=== PATIENT | female | born 1930 | race Caucasian/White ===

== ENCOUNTER 2016-12-06 19:38 | Observation (INO) ==
[2016-12-06] MEDS ORDERED: ZOFRAN IV ONE (19:57)
[2016-12-06 20:21] LABS: MANUAL DIFF NEEDED? NO
[2016-12-06 20:29] LABS: BASO% 0.2 % (0.0-0.8); EOS# 0.13 X1000 (0.0-0.7); EOS% 1.4 % (0.0-10.0); HEMATOCRIT 45.5 % (37.0-47.0); HEMOGLOBIN 14.9 g/dL (12.0-16.0); LYMPH# 1.47 X1000 (1.2-3.4); LYMPH% 15.7 % (20.5-51.1); MCH 30.5 PG (27-31); MCHC 32.7 g/dL (33-37); MONO# 0.75 X1000 (0.11-0.59); MPV 10.8 FL (7.4-10.4); NEUT% 74.7 % (42.2-75.2); PLT 219 X1000 (130-400); RBC 4.89 XMIL (4.2-5.4)
--- NOTE | 2016-12-06 20:32 | Diag Imaging Result Doc PS360 ---
EXAM: CHEST-1 VIEW HISTORY: dizzy, hypothermia TECHNIQUE: AP upright portable at 2019 COMMENT: The inspiration is suboptimal. The cardiomediastinal silhouette is increased since 10/13/2014. The pulmonary vascularity is increased in prominence. IMPRESSION: Cardiomegaly and pulmonary vascular engorgement. Electronically signed by Sridhar Garrett 12/06/2016 8:30 PM
[2016-12-06 20:39] LABS: PROTIME 10.5 Seconds (9.2-11.7); PTT 25.3 Seconds (22.0-36.0)
[2016-12-06 20:59] LABS: ALBUMIN 4.6 g/dL (3.5-5.0); CALCIUM 9.9 mg/dL (8.8-10.2); MAGNESIUM 2.1 mg/dL (1.5-2.7); POTASSIUM 3.9 mmol/L (3.5-5.1); TOTAL BILIRUBIN 0.54 mg/dL (0.20-1.00); TOTAL PROTEIN 7.4 g/dL (6.3-8.3)
--- NOTE | 2016-12-06 21:03 | Diag Imaging Result Doc PS360 ---
EXAM: HEAD W/O CONTRAST HISTORY: dizzy, vomit TECHNIQUE: CT of the head without contrast COMMENT: There is mild generalized cerebral atrophy. There is minimal periventricular white matter lucency particularly in the frontal lobes bilaterally. There is no evidence of bleed or abnormal extra-axial fluid collection. There is no mass effect. IMPRESSION: No evidence of acute intracranial disease. Minimal chronic microvascular changes. Electronically signed by Sridhar Garrett 12/06/2016 9:01 PM
[2016-12-06 21:05] LABS: ALLEN TEST YES; BE 2.1 mmoll (-3.0-3.0); BLOOD TYPE ARTERIAL; DRAW SITE R RADIAL; METHB 0.2 % (0.0-1.5); O2(CT) 20.2 mL/dL (15.0-23.0); PCO2(98.6) 46 mmHg (35-45); PO2(98.6) 72 mmHg (60-100); SAMPLE BLOOD; SAO2 93.4 % (95.0-100.0); THB 15.4 g/dL (11.5-17.4); pH(98.6) 7.39 (7.35-7.45)
[2016-12-06 21:06] LABS: MODALITY CANNULA
[2016-12-06] MEDS ORDERED: ATROPINE IV ONE (21:51)
[2016-12-06 22:00] LABS: URINE CULTURE NEEDED? NO; URINE MICRO REVIEW NEEDED? NO; URINE SOURCE CATH
[2016-12-06] MEDS ORDERED: ATROPINE SYRINGE IV ONE (22:00)
[2016-12-06 22:03] LABS: BILIRUBIN URINE NEGATIVE (NEGATIVE); BLOOD URINE NEGATIVE (NEGATIVE); COLOR STRAW; GLUCOSE URINE TRACE mg/dL (NEGATIVE); LEUKOCYTES URINE NEGATIVE (NEGATIVE); NITRITE URINE NEGATIVE (NEGATIVE); PROTEIN URINE NEGATIVE (NEGATIVE); SP GRAVITY URINE 1.006; TURBIDITY URINE CLEAR (CLEAR); UROBILINOGEN URINE NORMAL (NORMAL)
[2016-12-06 22:04] LABS: UR EPITHELIAL CELLS <10 /HPF (<10); URINE BACTERIA NEGATIVE /HPF; URINE RBC <10 /HPF (<10); URINE WBC <10 /HPF (<10)
[2016-12-07] MEDS: HALDOL IM PRN ×2 (03:16→05:30)
[2016-12-07] MEDS ORDERED: ANTIVERT PO PRN (03:17)
[2016-12-07] MEDS ORDERED: MILK OF MAGNESIA PO PRN (03:17)
[2016-12-07] MEDS ORDERED: ZOFRAN IV PRN (03:17)
[2016-12-07] MEDS ORDERED: TYLENOL PO PRN (03:17)
--- NOTE | 2016-12-07 05:39 | EKG Report ---
Test Performed on : 12/06/2016 10:32:48 PM Test Reason : dizzy Blood Pressure : / mmHG Vent. Rate : 115 BPM Atrial Rate : 060 BPM P-R Int : 000 ms QRS Dur : 090 ms QT Int : 370 ms P-R-T Axes : 000 -27 216 degrees QTc Int : 511 ms Atrial fibrillation. with rapid ventricular response. Minimal voltage criteria for LVH, may be normal variant Marked ST abnormality, possible inferior subendocardial injury Abnormal ECG No previous ECGs available Unconfirmed Result
--- NOTE | 2016-12-07 06:21 | HISTORY AND PHYSICAL ---
CHIEF COMPLAINT: Dizziness. HISTORY OF PRESENT ILLNESS: This is an 86-year-old female with severe dementia. She had no family at the bedside at the time of interview. The ER charting was unavailable for review at the time of admission. The patient apparently came in with a complaint of dizziness. It appears she was being treated for vertigo and received atropine 1 mg x2 doses. She then became tachycardic. An EKG was obtained which showed atrial fibrillation with a rapid ventricular rate around 115. She does not have a history of atrial fibrillation but, again, all information has been taken from the history and physical from 10/08/2014. The patient was oriented to person. She knew that she was in the hospital but otherwise, could not give any information. She did reportedly have some nausea and vomiting but I do not believe has had any vomiting since she has been in the hospital. A CT of her head was obtained in the emergency room, as well as a chest x-ray. Chest x-ray showed mild pulmonary vascular congestion and cardiomegaly. CT of her head showed no acute intracranial disease and minimal chronic microvascular changes. Laboratory data was grossly normal. She did have an elevated glucose at 246. Her urine was unremarkable. She will be admitted to the medical floor in observation status. 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 PREVIOUS SURGICAL HISTORY: Hysterectomy and tonsillectomy. FAMILY HISTORY: Unable to obtain related to patient's mentation. SOCIAL HISTORY: Denies tobacco, alcohol, or illicit drug use or abuse. ALLERGIES: No known drug allergies. HOME MEDICATIONS: 1. Lipitor 10 mg p.o. at bedtime. 2. Amlodipine 10 mg p.o. daily. 3. Atenolol 25 mg p.o. daily. 4. Colace 100 mg p.o. daily. 5. Tylenol 650 mg p.o. q.4 p.r.n. 6. Milk of magnesia 30 mL p.o. at bedtime p.r.n. 7. Calcium 600 plus vitamin D 1 p.o. daily. 8. Aricept 5 mg p.o. daily. 9. Remeron 15 mg p.o. at bedtime. REVIEW OF SYSTEMS: Fourteen point review of systems conducted with the patient. Pertinent positives are listed above in the HPI. Full review of systems could not be obtained related to patient's mentation. PHYSICAL EXAMINATION: VITAL SIGNS: Pulse is 62, respirations 21, blood pressure 158/85, oxygen saturation 95% on room air. GENERAL: Pleasantly confused, 86-year-old female, lying on the ER stretcher. No acute distress. Is oriented to person and knows she is at the hospital. Otherwise, is totally disoriented but very pleasant. HEENT: Head is atraumatic, normocephalic. Pupils equal, round, reactive to light. Extraocular eye movement intact. Sclerae are anicteric. Conjunctivae are pink. Oral mucosa is moist. NECK: Supple. No JVD. No thyromegaly. Trachea is midline. No cervical lymphadenopathy. CARDIAC: S1 and S2 are appreciated. No murmurs, gallops, rubs. Regular sinus rhythm on the monitor at this time. LUNGS: Clear to auscultation bilaterally. No rhonchi, wheezes, or rales. Symmetrical rise and fall with respirations. ABDOMEN: Soft, nondistended, nontender. Bowel sounds present in all 4 quadrants, normoactive. No pulsatile mass. No organomegaly. NEUROLOGICAL: Awake, alert, oriented to person and place, disoriented to situation and time. Unable to tell any of her medical history and does not have complaint. Cranial nerves 2-12 appear to be grossly intact. No motor or focal deficits noted. DIAGNOSTIC DATA: CT of the head shows mild microvascular changes. Chest x-ray shows cardiomegaly and increased pulmonary vascular congestion. LABORATORY DATA: CBC within normal limits. Coagulations within normal limits. ABG 7.39, pCO2 46, PO2 72, bicarb 26.4. This was on 2 L nasal cannula. Sodium 137, potassium 3.9, chloride 97, carbon dioxide 26, BUN 16, creatinine 1.1, glucose 246. Urine unremarkable. ASSESSMENT AND PLAN: 1. Vertigo. The patient received two doses of atropine in the emergency room which subsequently made her go into atrial fibrillation. She did not have complaint of dizziness, however. We will continue meclizine as needed at 12.5 mg by mouth. 2. Atrial fibrillation with rapid ventricular rate. On interview, the patient was back in sinus rhythm with a rate in the 60s to 90s. We will observe. We will not start any medications. Echocardiogram in the morning. We will consult cardiology to evaluate. We will check a TSH level and treat if needed. 3. Dementia. We will continue home medications. 4. Hyperlipidemia. Continue statin. 5. Hypertension. Continue medications. 6. Further recommendations per patient's clinical course. Dictated by TAMARA Candelario for Charly Cat MD cc: TAMARA Candelario MD
--- NOTE | 2016-12-07 07:05 | EKG Report ---
Test Performed on : 12/07/2016 05:59:30 AM Test Reason : afib Blood Pressure : / mmHG Vent. Rate : 061 BPM Atrial Rate : 061 BPM P-R Int : 172 ms QRS Dur : 074 ms QT Int : 432 ms P-R-T Axes : 054 -25 031 degrees QTc Int : 434 ms Normal sinus rhythm. Nonspecific ST abnormality Abnormal ECG When compared with ECG of 06-DEC-2016 22:32, (Unconfirmed) Sinus rhythm. has replaced Atrial fibrillation. Vent. rate has decreased BY 54 BPM QRS duration has decreased ST no longer depressed in Lateral leads T wave inversion no longer evident in Inferior leads T wave inversion no longer evident in Lateral leads Confirmed by Coy REHMAN, Jeremie Torres ([id number]) on 12/09/2016 9:11:11 AM
[2016-12-07] MEDS ORDERED: COLACE PO SCH (09:00)
[2016-12-07] MEDS ORDERED: TENORMIN PO SCH (09:00)
[2016-12-07] MEDS ORDERED: ARICEPT PO SCH (09:00)
[2016-12-07] MEDS ORDERED: CALTRATE 600 + D PO SCH (09:00)
[2016-12-07] MEDS ORDERED: NORVASC PO SCH (09:00)
--- NOTE | 2016-12-07 14:05 | CONSULTATION ---
DATE OF CONSULTATION: 12/07/2016 INDICATION: New onset atrial fibrillation. HISTORY OF PRESENT ILLNESS: Ms. Mcpherson is an 86-year-old female with a history of dementia, who apparently was brought in from the skilled nursing with complaints of dizziness. The patient has no complaints of this at this time and is not aware of any of these complaints proceeding her presentation. The note from the [facility] care facility in [place] said the patient was nauseated and dizzy and thus was sent to the ER. For some reason here, she was treated with atropine. There was no mention of bradycardia. She subsequently then converted into atrial fibrillation with a rate of around 115 and spontaneously converted back into sinus. There is no apparent history of atrial fibrillation previously. The patient is not able to provide any history regarding mobility or fall risk, and no ability to discuss any sort of bleeding issues. Since that time, the patient again has converted back over to sinus and has no complaints. PAST MEDICAL HISTORY: Significant for: 1. Hypertension. 2. Hyperlipidemia. 3. Urinary tract infections. FAMILY HISTORY: Unable to obtain, secondary to patient's history of dementia. SOCIAL HISTORY: Unable to be obtained. She currently is a resident of [facility] in [place]. REVIEW OF SYSTEMS: A 10 system review of systems is unable to be obtained secondary to patient's current dementia. PHYSICAL EXAMINATION: Vital Signs: During this hospitalization, she has been afebrile. Heart rates more recently have been in the 60s to 80s. Her blood pressure is 155/52. General: No acute distress. HEENT: Oropharynx is moist. Normal dentition. Eye examination shows pink conjunctivae. White sclerae. Neck Examination: Shows no obvious thyromegaly or thyroid tenderness. Cardiovascular: She is in a regular rate and rhythm. She has no obvious murmurs. Current telemetry shows that she is in sinus rhythm. She has no lower extremity edema. No carotid bruits. Chest examination: Clear bilaterally. She has no increased work of breathing. Abdomen: Soft, nontender, nondistended. She has no obvious organomegaly. Skin Examination: Warm and dry throughout, without any rashes. Neurological: She is moving all extremities well. Cranial nerves 2-12 are intact without any sensation deficits. PERTINENT DATA: Her EKG yesterday at 22:32 shows atrial fibrillation, rate of 115 beats per minute. She has some ST depression noted in the lateral leads. Her subsequent EKG occurring this morning at 5:59 shows sinus rhythm, rate of 61 beats per minute. She had a chest x-ray demonstrating cardiomegaly and mild pulmonary vascular congestion. Her head CT demonstrated no evidence of any acute intracranial disease. Lab findings show white count of 9.4, hematocrit 45, platelet count 219,000, INR 1. ABG shows pH 7.39, pCO2 46, pO2 of 72. Sodium 137, potassium 3.9, BUN 16, creatinine 1.1. Her TSH was 12.5. Cardiac enzymes are negative. Urinalysis was reviewed. ASSESSMENT: New onset atrial fibrillation, now back in sinus. PLAN: I do not believe the patient is an appropriate anticoagulation candidate presently secondary to her inability to provide any history regarding falls or bleeding risk. In addition, she has a history of significant dementia and I would not likely pursue treatment with anticoagulants. I will recommend aspirin therapy in this patient. For now, she can continue on her current medication regimen. I would add in a low dose of the diuretic, as that may benefit her vascular engorgement that was noted on her chest x-ray, although she is not currently symptomatic. From my standpoint, the patient may be discharged home with followup with a emt in the future. Her TSH elevation needs to be addressed, as she may be hypothyroid. cc: Matty Aaron MD
--- NOTE | 2016-12-07 14:38 | DISCHARGE SUMMARY ---
ADMISSION DATE: 12/07/2016 DISCHARGE DATE: 12/07/2016 CONSULTATIONS: None. PERTINENT PROCEDURES: Head CT: Showed: 1. No evidence of acute intracranial disease. 2. Chronic microvascular ischemic changes. Chest x-ray: Showed cardiomegaly and pulmonary vascular engorgement. DISCHARGE DIAGNOSES: 1. Vertigo, improved. 2. Atrial fibrillation with rapid ventricular response. The patient is back in sinus rhythm. 3. Dementia, continue home medications. 4. Hyperlipidemia, continue statin. 5. Hypertension, continue home medications. HOSPITAL COURSE: Briefly, Ms. Mcpherson is an 86-year-old female with severe dementia. She came to the emergency department with a complaint of dizziness. She was being treated for vertigo, received atropine 1 mg x2 doses. She then became tachycardic and an EKG was obtained that showed atrial fibrillation with a rapid ventricular response and a rate of around 15. The patient was only oriented to person, secondary to her dementia. She knew that she was in the hospital. Otherwise, she could not give any type of information. She did report some nausea, but no vomiting. A CT of the head in the emergency department did not show anything acute, as well as a chest x-ray that did show some mild pulmonary vascular congestion and cardiomegaly. Laboratory data was grossly normal. Her urine was unremarkable. The patient was admitted into observation status. Her vertigo has resolved. She is now back in sinus rhythm. Cards added ASA, and low dose HCTZ and ECHO that is pending final results and follow up with cards with in the month and will be discharged back to her rehab facility. DISCHARGE VITAL SIGNS: I d not have any temperatures reported, heart rate 63, respirations 15, blood pressure is 145/71, O2 is 93% on room air. DISCHARGE DIET: Healthy heart. DISCHARGE MEDICATIONS: As per Dr. Mcdowell. 1. Acetaminophen 650 mg p.o. every 4 hours p.r.n. 2. Norvasc 10 mg p.o. daily. 3. Aspirin 81 mg p.o. daily. 4. Tenormin 25 mg p.o. daily. 5. Lipitor 10 mg p.o. at bedtime. 6. Calcium 600 plus vitamin D 400, 1 each p.o. daily. 7. Colace 100 mg p.o. daily. 8. Aricept 5 mg p.o. daily. 9. Hydrochlorothiazide 12.5 mg p.o. daily. 10. Medical Mag 30 mL p.o. at bedtime p.r.n. 11. Antivert 12.5 mg p.o. t.i.d. 12. Remeron 15 mg p.o. at bedtime. DISPOSITION: The patient is being discharged back to rehabilitation. FOLLOWUP CARE: 1. She can follow up with Dr. Matty Aaron, ballpoint pen cartridge tester [facility], in 1 month. 2. The patient can return to the emergency department for any worsening of symptoms. This is TAMARA Boswell, doing a discharge summary for Dr. Mcdowell. Dictated by TAMARA Boswell for Todd Brando Mcdowell MD Addendum: I personally evaluated and examined the patient in conjunction to the OBGYN NURSE and agreed with her disposition. See my PN for exam MTDD
--- NOTE | 2016-12-07 14:41 | PROGRESS NOTE ---
DATE: 12/07/2016 SUBJECTIVE: The patient is pleasantly demented, and no pain, no dizziness, no lightheadedness. OBJECTIVE: Vital signs: Blood pressure 155/52, pulse of 80, respiration 15, temperature 94 degrees last documented. General appearance: Elderly white female in no acute distress. Pleasantly confused. HEENT: Anicteric. Clear conjunctivae. Neck: Supple. No JVD. No bruit. Cardiovascular: S1, S2. Normal rate and rhythm. No murmur, rubs, or gallops. Pulmonary: Clear to auscultation bilaterally. GI: Soft, nontender, nondistended. Normoactive bowel sounds. Musculoskeletal: No clubbing, cyanosis, or edema. ASSESSMENT/PLAN: This is an 86-year-old admitted to the hospital for dizziness and was given atropine in the emergency room, causing her to go into atrial fibrillation with rapid ventricular response. Discussed with Dr. Matty Aaron. Dr. Aaron will get an echocardiogram as an outpatient. The patient can be discharged from his standpoint. She is otherwise doing well. Her heart rate is in the 60s and 70s. We will plan to discharge the patient home. Should she have an elevated blood pressure, add hydrochlorothiazide 12.5, and also add an aspirin for her atrial fibrillation.
[2016-12-07 16:17] VITALS: BP 157/87
[2016-12-07] MEDS ORDERED: REMERON PO SCH (21:00)
[2016-12-07] MEDS ORDERED: LIPITOR PO SCH (21:00)
--- NOTE | 2016-12-08 04:59 | ECHO REPORT ---
ORDER DATE: 12/07/2016 INTERPRETING PHYSICIAN: Dr. Hanna REQUESTING PHYSICIAN: CLINICAL INDICATIONS: An 86-year-old female with new onset atrial fibrillation, dizziness, hypertension. M-MODE MEASUREMENTS: Right ventricle: 2.2 cm. Left ventricle end diastole: 3.6 cm. Left ventricle end systole: 2.3 cm. Posterior wall: 1.1 cm. Interventricular septum: 1.1 cm. Left atrium: 4.7 cm. Aortic root: 3.2 cm. SUMMARY OF 2-DIMENSIONAL IMAGING: The left ventricular function is normal. Ejection fraction 66%. Concentric LVH. The right ventricle is normal. The atria appear to be normal. The aortic valve looks normal. Color flow mapping indicates trace regurgitation. The mitral valve looks normal. Color flow mapping unremarkable. Pulse wave Doppler of mitral inflow shows reversal of the E and the A wave. Tissue Doppler of septal and lateral mitral annulus averages 5.5 cm per second. Pulmonary venous flow appears to be grossly normal. There is impaired left ventricular relaxation. The tricuspid valve shows a mild degree of regurgitation. The inferior vena cava was not visualized. Pulmonary pressure is somewhere in the range of 38-43 mmHg. The pulmonic valve looks normal. Color flow mapping unremarkable. There is no pericardial effusion, masses or thrombus. This study was technically difficult. Clinical correlation recommended. cc: MD Mat Calderon CRNP
[2016-12-08] MEDS ORDERED: HYDROCHLOROTHIAZIDE PO SCH (09:00)
[2016-12-08] MEDS ORDERED: ASPIRIN PO SCH (09:00)
--- NOTE | 2016-12-08 10:24 | Carotid Study ---
DATE: 12/07/2016 PROCEDURE: Carotid duplex imaging. REQUESTING PHYSICIAN: Dr. Arguello in the Emergency Department. INTERPRETING PHYSICIAN: Diego Sullivan MD TECH: [place] INDICATIONS: Vertigo. TECHNIQUE: Bilateral duplex and color flow imaging of the carotid arteries was performed using the [employer] Boxid E9 Ultrasound System with a 9L-D transducer. OBSERVED DATA RIGHT LEFT Brachial Blood Pressure Carotid Pulse Bruits: Carotid/Sub DIAGRAM OF ULTRASOUND IMAGING R L RIGHT INT EXT INT EXT LEFT Eran (cm/s) Eran (cm/s) Subclavian 75/0 Subclavian 108/0 CCA Proximal 56/6 CCA Proximal 101/10 CCA Distal 38/5 CCA Distal 59/8 Bulb 33/6 Bulb 84/5 ICA Proximal 47/7 ICA Proximal 69/11 ICA Mid 81/14 ICA Mid 92/11 ICA Distal 72/10 ICA Distal 48/10 ECA 305/0 ECA 98/5 Vertebral 45/8 Vertebral 60/15 ICA/CCA Ratio 1.45 ICA/CCA Ratio 0.91 % Stenosis 0%-39% % Stenosis 0%-39% FINDINGS: There appears to be irregular calcific plaques noted to bilateral carotid bulbs. There appears to be also stenosis noted in the right external carotid artery. At this time by strict velocity criteria the stenosis in the bilateral internal carotid arteries is not hemodynamically significant. Both vertebral arteries are antegrade flow. PHYSICIAN INTERPRETATION: No hemodynamically significant flow-limiting stenosis noted to bilateral internal carotid arteries although there are irregular calcific plaques noted. There appears to be some stenosis noted in the right external carotid artery. Both vertebral arteries are antegrade flow. cc: MD Mat Steele CRNP
--- NOTE | 2017-01-30 18:55 | PROVIDER DOCUMENTATION ---
This chart was entered by Cass Andrews Scribe, acting as scribe for Jagjit Arguello MD. HPI-General Adult - General Chief Complaint: Nausea/Vomiting Stated Complaint: N/V Time Seen by Provider: 12/06/16 19:52 Source: other (friend) Allergies/Adverse Reactions: Patient Allergies Allergy/AdvReac Type Severity Reaction Status Date / Time No Known Allergies Allergy Verified 10/08/16 16:30 Home Medications: Home Medication List Medication Instructions Recorded Confirmed Last Taken Type ATORVAstatin [Lipitor] 10 mg PO QHS #0 tablet 10/16/14 12/06/16 10/07/16 21:00 Rx Amlodipine [Norvasc] 10 mg PO DAILY #0 tablet 10/16/14 12/06/16 10/08/16 09:00 Rx Atenolol [Tenormin] 25 mg PO DAILY #0 tablet 10/16/14 12/06/16 10/06/16 09:00 Rx Acetaminophen 650 mg PO Q4HR PRN 10/08/16 12/06/16 10/08/16 History Calcium Carbonate/Vitamin D3 1 each PO DAILY 10/08/16 12/06/16 10/07/16 21:00 History [Calcium 600 + Vit D 400 Tablet] Docusate Sodium [Colace] 100 mg PO DAILY 10/08/16 12/06/16 10/07/16 21:00 History Donepezil [Aricept] 5 mg PO DAILY 10/08/16 12/06/16 10/07/16 21:00 History Magnesium Hydroxide [Milk of 30 ml PO QHS PRN 10/08/16 12/06/16 Unknown History Magnesia] Mirtazapine [Remeron] 15 mg PO HS 12/06/16 12/06/16 Unknown History Aspirin 81 mg PO DAILY chewtab 12/07/16 Unknown Rx Hydrochlorothiazide 12.5 mg PO DAILY tablet 12/07/16 Unknown Rx Meclizine [Antivert] 12.5 mg PO TID PRN #0 tablet 12/07/16 Unknown Rx - History of Present Illness -Gen Adult Nature of Presenting Problems: 86 year old F presents to the ED from [facility] via EMS with a cc of nausea, vomiting, and dizziness. Friend states that she received a call that pt became dizzy while walking with walker and sat down in the floor. Pt then developed nausea and vomiting. Location of Pain/Injury: reports: none Pain Radiation: reports: no radiation Severity: reports: mild Onset/Duration: reports: just prior to arrival Timing: reports: still present Associated Symptoms: reports: dizziness, nausea, vomiting Similar Symptoms Previously?: No Recently seen or treated by another doctor?: No Review of Systems - Adult - REVIEW OF SYSTEMS - ADULT Constitutional: denies: chills, fever Eyes: reports: no symptoms reported Ears, Nose, Mouth & Throat: reports: no symptoms reported Cardiovascular: reports: no symptoms reported Respiratory: reports: no symptoms reported Gastrointestinal: reports: nausea, vomiting Genitourinary: reports: no symptoms reported Musculoskeletal: reports: no symptoms reported Integumentary: reports: no symptoms reported Neurological: reports: dizziness/vertigo. denies: syncope Psychiatric: reports: no symptoms reported Endocrine: reports: no symptoms reported Hematologic/Lymphatic: reports: no symptoms reported Allergic/Immunologic: reports: no symptoms reported All Other Systems: Reviewed and Negative Past History - Adult - PAST MEDICAL HISTORY-ADULT Review of Records: reports: Nursing Assessment Review, Medications Reviewed Major Childhood Illnesses: reports: denies history Cardiovascular: reports: CHF, HTN, hyperlipidemia Respiratory: reports: COPD Gastrointestinal: reports: GERD Obstetrical/Gynecological: reports: denies history Genitourinary: reports: denies history Musculoskeletal: reports: denies history Neurological: reports: dementia Endocrine/Immune: reports: denies history Other Conditions: reports: denies history - PRIOR SURGERIES/PROCEDURES Surgical/Procedure History: reports: hysterectomy, tonsillectomy - IMMUNIZATION STATUS Childhood Immunizations: See Nurse Assessment Flu Vaccine: See Nurse Assessment - FAMILY HISTORY Family History: reviewed, not pertinent - SOCIAL HISTORY Smoking: quit greater than 1 year Substance Use: none/never Alcohol Use Frequency: never Physical Exam-General - PHYSICAL EXAM-ADULT Initial Vital Signs Reviewed: Yes - CONSTITUTIONAL General Appearance: alert, mild distress - RESPIRATORY Respiratory: chest non-tender, lungs clear, normal breath sounds - CARDIOVASCULAR Cardiovascular: normal peripheral pulses, regular rate, rhythm, no edema - GASTROINTESTINAL (ABDOMEN) Abdominal Exam: non tender, soft - SKIN Integumentary: other (cool to touch) Progress - PLAN OF CARE/RESULTS Progress/Plan/Lab Results: Vital Signs - 8 hr 12/06/ 19:56 Temperature 94 F L Pulse Rate 54 L Respiratory Rate 21 Blood Pressure 201/75 Orders Category Date Time Status Ondansetron [Zofran] Med 12/06/16 19:57 Discontinued 8 mg IV NOW ONE Result Diagrams: 12/06/16 19:50 12/06/16 19:50 - REASSESSMENT Reassessment #1 Time Reassessed: 22:45 (PT states that nausea and vomiting have improved. Friends state that pt is still c/o dizziness.) Status: improving - EKG 1 Time of EKG reading by physician:: 22:37 EKG Read and Signed by:: Jagjit Arguello EKG Interpretation (*Must complete 3 of following elements*): Abnormal Rate: 115 Rhythm: a-fib with RVR QRS: LVH (minimal voltage criteria) ST Wave: non-specific ST changes (marked ST abnormality) - XRAY 1 XRAY Study: Chest Impression: Abnormal (cardiomegally and pulmonary vascular engorgement: Dr. Garrett(radiologist)) - CT/MRI 1 CT Study: Head Impression: Normal (No evidence of acute intracranial disease. Minimal chronic microvascular changes.: Dr. Garrett(radiologist)) - CONSULTS/PCP/HOSPITALIST Notification #1 *Consult/PCP/Hospitalist*: Dr. James(hospitalist) Time Discussed: 23:03 Consult Disposition: Admit Departure - Departure Date of Disposition Decision: 12/06/16 Time of Disposition Decision: 23:00 DIAGNOSIS: New onset a-fib Disposition: ADMITTED INPATIENT 09 Certified Medical Emergency: Emergent Condition: Good - Critical Care Note This patient required my direct & personal management of CC.: No This chart was documented by the indicated scribe, (Cass Andrews Scribe) and accurately reflects the services I performed and decisions made by me, Jagjit Arguello MD, as attested by the provider's signature.
== END 2016-12-07 17:02 ==
LOC: EDIPHOLD 19:38 → ED 19:38 → SUATTDRO 12-07 03:27 → EDIPHOLD 12-07 16:17
PROVIDERS: ATTEND Internal Medicine